=== PATIENT | male | born 1955 | race Caucasian/White ===

== ENCOUNTER 2016-11-03 10:09 | Emergency (ER) | payer MEDICARE ==
[~2016-11-03] VITALS: Ht 188 cm; Wt 107.3 kg
[~2016-11-03 10:09] MED LIST: AMIT150T PO; AMLO5TAB2 PO; FLUO40CA PO; METO100T3 PO; OXYC1TAB24 PO; PRAM0.252 PO; TRAZ150T72 PO; ZIT250 PO; ZLP10T PO
[2016-11-03 10:14] VITALS: BP 157/112; PULSE 107; RESP 18; O2SAT 97
--- NOTE | 2016-11-03 10:29 | ED.REPORT ---
HPI-Neurologic Deficit Date of Service November 03, 2016 ED Provider: Dr. Verdin Pt is a 61 y/o male w/ a hx of TBI, HTN, alcohol abuse, presenting to the ED from Urgent Care c/o left arm numbness from the elbow to the fingertips onset 07:00 this morning after waking up. The patient's case was discussed with the Urgent Care provider prior to the patient's arrival and symptoms were consistent with radial nerve palsy. He was sent here because he was observed to have unsteady gait and be completely unable to perform even 1 step of heel-to- toe walking. He states he has been experiencing unsteady gait which has been gradually worsening for the past 2 years. These balance problems have caused him to have about 2 falls within the past few days. He admits to drinking a few beers each day. He ran out of his antihypertensive medication about 6 days ago and sees his PCP occasionally to get refills. Pt denies dysphagia, focal weakness, MURILLO, speech change, vision change, numbness otherwise. There is no history of CVA/TIA, CAD, or diabetes. PCP: Flores Parra Nursing Notes Stated Complaint: LEFT WRIST PAIN Chief Complaint: Neuro Symptoms/ Deficits Nursing Notes Reviewed: Yes Allergies: Coded Allergies: No Known Allergies (Verified Allergy, Unknown, 01/19/16) Uncoded Allergies: BEE STING (Allergy, Severe, 11/22/15) Scheduled Amitriptyline (Amitriptyline) 150 Mg Tablet 150 MG PO HS Amlodipine (Amlodipine) 5 Mg Tablet 5 MG PO BID Amlodipine (Amlodipine) 5 Mg Tablet 5 MG PO BID Azithromycin (Zithromax) 250 Mg Tablet 250 MG PO DAILY Fluoxetine (Fluoxetine) 40 Mg Capsule 40 MG PO DAILY Metoprolol Tartrate (Metoprolol Tartrate) 100 Mg Tablet 100 MG PO BID Metoprolol Tartrate (Metoprolol Tartrate) 100 Mg Tablet 100 MG PO BID Pramipexole Dihydrochloride (Mirapex) 0.25 Mg Tablet 0.25 MG PO HS Trazodone (Trazodone) 150 Mg Tablet 150 MG PO HS Scheduled PRN Zolpidem (Ambien) 10 Mg Tablet 10 MG PO HS PRN PRN For Insomnia oxyCODONE-Acetaminophen 5-325 mg (oxyCODONE-Acetaminophen 5-325 mg) 1 Each Tablet 1-2 TAB PO Q4H PRN PRN For Pain General Time Seen by Provider: 10:35 Chief Complaint Numbness arm... (Left) Hx Obtained From: Patient Arrived By: Walk-in Sudden in Onset?: No Onset Occurred: 5 - 8 hours ago Symptom Duration: Since onset Severity: Current: No pain currently Severity: Maximum: No pain Past Medical History Past Medical History h/o alcoholism TBI Thyroid nodule ADD Knee osteoarthritis Hypertension Reports: Depression, Thyroid disease Past Surgical History Right knee replacement Reports: Tonsillectomy Smoking History Former Smoker Social History Alcohol Use: 1-3 per day Drug Use: Denies drug use Ambulatory Status Independent Review of Systems Constitutional: Denies: Chills, Fever Respiratory: Denies: Non-productive cough, Shortness of breath Cardiovascular: Denies: Chest pain, Dyspnea on exertion GI: Denies: Abdominal pain, Dysphagia Neurologic: Reports: Numbness, Problem walking, Denies: Change LOC, Confusion, Dizziness, Focal weakness, Headache, Lightheaded, Seizure, Shaking, Slurred speech, Spinning sensation, Syncope, Unable to speak, Vision change, Weakness Complete sys rev & neg: except as marked. Physical Exam Initial Vital Signs Vital Signs (First) Date Time Temp Pulse Resp B/P Pulse Ox O2 Delivery O2 Flow Rate FiO2 11/03/16 10:14 36.4 107 18 157/112 97 11/03/16 11:50 Room Air Initial VS: Reviewed, Vital signs abnormal ENT: Mucous membranes moist, Conjunctiva normal, No scleral icterus Neck: Supple, Full range of motion Abdomen / GI: Soft, Non-tender Skin: Warm, Dry, No cyanosis Psychiatric: Mood/affect normal, Behavior normal, Normal thought content General/Constitutional: Awake, Alert, No acute distress, Cooperative, Not toxic appearing Appearance / Presentation: Positive: Hygiene poor, Obese Head / Eyes: Atraumatic, Normocephalic, PERRL, EOMI, No nystagmus Respiratory / Chest: Breath sounds NL, Breath sounds = bilat, No respiratory distress, No rales, No rhonchi, No wheezing, No retractions, No stridor Cardiovascular: Heart rate NL, Regular rhythm, Heart sounds NL, No murmurs Neurologic: Oriented X3, Speech NL, No motor deficits, No sensory deficits, CN II - XII intact, Memory NL Mental Status: Negative: Confused Radial nerve palsy (wrist drop, weakness intraosseous muscles, paresthesia dorsum of hand up to dorsum of forearm). Slightly wide based gait. Unable to perform tandem gait Mildly tremulous No opthalmoplegia Upper Extremity / MS: Atraumatic, No swelling, No erythema, No deformity, Vascular intact, No compartment syndrome, No circumferential injury, No clubbing /cyanosis Interpretation & Diagnostics Lab Results Interpretation Result Diagram: 11/03/16 1115 11/03/16 1115 Test 11/03/16 11:15 White Blood Count 9.2th/mm3 (3.8-10.1) Red Blood Count 4.81mil/mm3 (4.40-5.80) Hemoglobin 15.1g/dL (13.8-17.2) Hematocrit 45.1% (41.0-50.0) Mean Corpuscular Volume 93.8fL (81-100) Mean Corpuscular Hemoglobin 31.4pg (27.0-35.0) Mean Corpuscular Hemoglobin Concent 33.5% (32.0-37.0) Red Cell Distribution Width 12.0% (12.3-15.4) Platelet Count 247bil/L (150-400) Neutrophils (%) (Auto) 72.1% (40-74) Lymphocytes (%) (Auto) 17.4% (14-46) Monocytes (%) (Auto) 8.4% (4-12) Eosinophils (%) (Auto) 1.4% (0-5) Basophils (%) (Auto) 0.5% (0-3) Sodium Level 137mEq/L (134-144) Potassium Level 3.6mEq/L (3.5-5.2) Chloride Level 95mEq/L (97-108) Carbon Dioxide Level 24mmol/L (18-29) Blood Urea Nitrogen 10mg/dL (8-27) Creatinine 0.60mg/dL (0.76-1.27) Estimat Glomerular Filtration Rate 145mL/min (>59) Glucose Level 109mg/dL (60-99) Calcium Level 8.1mg/dL (8.5-10.1) Total Bilirubin 0.7mg/dL (0.0-1.2) Aspartate Amino Transf (AST/SGOT) 114U/L (0-50) Alanine Aminotransferase (ALT/SGPT) 208U/L (0-44) Alkaline Phosphatase 88U/L (25-160) Total Protein 7.1g/dL (6.4-8.4) Albumin 4.1g/dL (3.4-5.0) Hold [place] Top Tube Received (Received) ECG Interpretation ECG Interpretation: EKG from Urgent Care Sinus tachycardia rate 104 Abnormal R wave progression Non-specific ST changes Time: 10:56 Interpreted by: ED physician CT Head Interpretation IMPRESSION: No acute process. Dictated by: Luis F Govea M.D. on 11/03/2016 at 11:52 Approved by: Luis F Govea M.D. on 11/03/2016 at 11:53 Study: Head CT no contrast Interpretation / Wet Read by: Interpret - Radiologist Re-Eval/Medical Decision Med Decision/Clinical Course His left arm numbness and weakness is consistent with a regular palsy, it is peripheral in nature and does not seem consistent with stroke, he has had a progressive decline in his gait which seems to be chronic over the last few years, he states he is using a cane as early as 2 years ago. he is extremely poor historian and basic labs and head CT are ordered and unremarkable. He does have mild transaminitis related to his alcohol use, he is nontender in the right upper quadrant. His blood pressure medicines are refilled, return and follow-up precautions are given. Re-Evaluation/Progress : Time of Eval: 12:14 Re-Evaluation/Progress Note: Pt rechecked. Numbness and motor function improving. No new neurological symptoms. Informed pt of plan for treatment. Pt understands and agrees with plan for treatment. F/U instructions and RTER warnings given. All questions addressed. Counseled Regarding: Diagnosis, Lab results, Need for follow-up, When/why to return to ED Discharge & Departure Impression: Primary Impression: Acute radial nerve palsy of left upper extremity Disposition: Home Discharge Condition All VS Reviewed: Yes Condition: Stable Patient Instructions: Radial Nerve Palsy (ED) Additional Instructions: Your arm numbness is consistent with radial nerve palsy, which is often caused by applied pressure to the area for long periods of time, such as sleeping on the arm. The CT scan today was normal. There was no sign of stroke, bleeding in the brain , or tumor. The cause of your unsteady gait is unclear at this point but is not caused by an emergent condition. I recommend you drink less alcohol each day because it can worsen your unsteady gait. Use a walker or cane so that you are more steady. Continue to take your blood pressure medication as prescribed. Return to the emergency department if you experience severe headache, new one- sided numbness of your arms or legs, vision changes, slurred speech or inability to speak, trouble swallowing, or for other concerning symptoms. Follow-up with your primary care doctor tomorrow or the next day for personalized outpatient evaluation. Call today to set up an appointment. Referrals: Flores Parra (PCP) Scribe Attestation Portions of this note were transcribed by Dean Walters. I, Dr. Verdin personally performed the history, physical exam and medical decision-making; I reviewed and confirmed the accuracy of the information in the transcribed note. Signed by Teresita Butler, 11/03/16 - [phone] copies to: Flores Parra Timothy S DO November 03, 2016 10:29 DEAN WALTERS November 03, 2016 10:40
[2016-11-03 11:20] LABS: BASOPHILS % (AUTO) 0.5 % (0-3); EOSINOPHILS % (AUTO) 1.4 % (0-5); MONOCYTES % (AUTO) 8.4 % (4-12); Mean Corpuscular Hemoglobin 31.4 pg (27.0-35.0); Mean Corpuscular Volume 93.8 fL (81-100); NEUTROPHILS % (AUTO) 72.1 % (40-74); Platelet Count 247 bil/L (150-400)
[2016-11-03 11:50] VITALS: BP 162/91; PULSE 105; RESP 16; O2SAT 99
--- NOTE | 2016-11-03 11:54 | DRSVH ---
PROCEDURE: CT BRAIN WITHOUT CONTRAST ([id number]) INDICATIONS: ataxia TECHNIQUE: Noncontrast 4.5 mm thick angled axial sections acquired from the foramen magnum to the vertex, with c oronal reformats. COMPARISON: [facility], CT, BRAIN W/O CONTRAST, 02/03/2014, 16:22. [facility], CT, BRAIN W/O CONTRAST, 01/26/2014, 6:24. [facility], CT, BRAIN W/O CONTRAST, 4, 20:13. FINDINGS: Image quality: Excellent. CSF spaces: Basal cisterns are patent. No extra-axial fluid collections. The ventricles are symmet rambo in size and shape. Brain: No intracranial bleeds or masses. There is cerebral volume loss for age, with resultant vent ricular and sulcal prominence. There are periventricular and deep white matter chronic small vessel ischemic changes. There is intracranial internal carotid artery atherosclerosis. Skull and face: Calvarium and visualized facial bones appear intact, without suspicious lesions. Sinuses: Visualized sinuses and mastoids are clear. IMPRESSION: No acute process. Dictated by: Luis F Govea M.D. on 11/03/2016 at 11:52 Approved by: Luis F Govea M.D. on 11/03/2016 at 11:53
[2016-11-03] MEDS ORDERED: AMLO5TAB2 PO (12:21)
[2016-11-03] MEDS ORDERED: METO100T3 PO (12:21)
[2016-11-03 12:43] VITALS: BP 155/96; PULSE 91; RESP 23; O2SAT 92
== END 2016-11-03 13:05 | disposition home or self-care (01) ==
LOC: SED 11:01
DX: G56.32 Lesion of radial nerve, left upper limb (principal); R26.81 Unsteadiness on feet; F32.9 Major depressive disorder, single episode, unspecified; I10 Essential (primary) hypertension; Z87.820 Personal history of traumatic brain injury; Z96.651 Presence of right artificial knee joint; Z86.39 Personal history of other endocrine, nutritional and metabolic disease; Z87.891 Personal history of nicotine dependence